=== PATIENT | female | born 1940 | race Caucasian/White ===

== ENCOUNTER 2016-08-09 14:00 | Emergency (ER) | payer MEDICARE ==
[~2016-08-09] VITALS: Ht 162.6 cm; Wt 66.4 kg
[2016-08-09 15:09] LABS: BLOOD UREA NITROGEN 13 mg/dL (7-18)
[2016-08-09] MEDS ORDERED: LEVO88TA4 PO (15:13)
[2016-08-09] MEDS ORDERED: POTA20TA14 PO (15:13)
[2016-08-09] MEDS ORDERED: FURO-93 PO (15:13)
[2016-08-09 17:16] LABS: IS PT STATUS REG ER OR PRE ER? YES
[2016-08-09 18:24] VITALS: BP 146/74
== END 2016-08-09 18:26 | disposition home or self-care (01) ==
LOC: ED 14:42
DX: M54.2 Cervicalgia (principal); M25.512 Pain in left shoulder; M79.622 Pain in left upper arm; E03.9 Hypothyroidism, unspecified
CPT/HCPCS: 36415; 72125; 80048; 82040; 84439; 84443; 84484; 85025; 93005

== ENCOUNTER 2018-02-18 06:43 | Inpatient (IN) | payer MEDICARE ==
[~2018-02-18] VITALS: Ht 162.6 cm; Wt 63.9 kg
[~2018-02-18 06:43] MED LIST: ASCO-90 PO; ASPI-496 PO; ASPI-691 PO; CALC-126 PO; CHOL200024 PO; CYAN500T2 PO; ESTR0.5T PO; FLUT9.9S NS; FURO-93 PO; GLUC-121 PO; LEVO88TA4 PO; MULT-717 PO; POTA20TA14 PO; excedrin pm PO
[2018-02-18] MEDS ORDERED: FENTANYL PF 100 MCG/2ML ONE (07:46)
[2018-02-18] MEDS ORDERED: PROPOFOL 50 ML ONE (07:52)
[2018-02-18] MEDS: LACTATED RINGERS 1,000 ML IV SCH ×2 (07:58→12:38)
[2018-02-18] MEDS ORDERED: ACETAMINOPHEN 500 MG TABLET PO ONE (08:00)
[2018-02-18] MEDS ORDERED: LIDOCAINE-MPF 1%, 2ML INFIL ONE (08:00)
[2018-02-18] MEDS ORDERED: ONDANSETRON ODT 8 MG PO ONE (08:00)
[2018-02-18] MEDS ORDERED: GABAPENTIN 300 MG CAPSULE PO ONE (08:00)
[2018-02-18] MEDS ORDERED: FAMOTIDINE 20 MG TABLET PO ONE (08:00)
[2018-02-18] MEDS ORDERED: ROPIvacaine/PF 0.2%, 20 ML ONE (09:17)
[2018-02-18] MEDS ORDERED: TRANEXAMIC ACID 100 MG/ML, 10ML ONE (09:17)
[2018-02-18] MEDS ORDERED: KETOROLAC 60 MG/2 ML ONE (09:17)
[2018-02-18] MEDS ORDERED: EPINEPHRINE 1 MG/ML, 1ML ONE (09:18)
[2018-02-18] MEDS ORDERED: SODIUM CHLORIDE 0.9% 100 ML ONE (09:18)
[2018-02-18] MEDS ORDERED: MIDAZOLAM 1 MG/ML, 2ML ONE (09:39)
[2018-02-18] MEDS ORDERED: MEPERIDINE/PF 25MG/0.5ML IVPush PRN (10:30)
[2018-02-18] MEDS ORDERED: ONDANSETRON 2MG/ML, 2ML IV PRN ×2 (10:30→11:30)
[2018-02-18] MEDS ORDERED: FENTANYL PF 100 MCG/2ML IV PRN (10:30)
[2018-02-18] MEDS ORDERED: PROMETHAZINE 25 MG/ML, 1ML IV PRN (10:30)
[2018-02-18] MEDS ORDERED: OXYcodone 5 MG/5 ML ORAL.SOL UDC PO PRN (10:30)
[2018-02-18] MEDS ORDERED: ONDANSETRON ODT 8 MG PO PRN (10:30)
[2018-02-18] MEDS ORDERED: LORazepam 2 MG/ML, 1ML IVPush PRN (10:30)
[2018-02-18] MEDS ORDERED: HYDROmorphone 2 MG/ML, 1ML IVPush PRN (10:30)
[2018-02-18] MEDS ORDERED: PROPOFOL 10 MG/ML, 20ML ONE (10:32)
[2018-02-18] MEDS ORDERED: DEXAMETHASONE 4 MG/ML, 1ML ONE (10:32)
[2018-02-18] MEDS ORDERED: BUPIVACAINE/PF 0.25% ONE (10:32)
[2018-02-18] MEDS ORDERED: ONDANSETRON 2MG/ML, 2ML ONE (10:32)
[2018-02-18] MEDS ORDERED: CEFAZOLIN 1,000 MG ONE (10:32)
[2018-02-18] MEDS ORDERED: PROMETHAZINE 25 MG/ML, 1ML IM PRN (11:30)
[2018-02-18] MEDS ORDERED: HYDROmorphone 1 MG/ML, 1ML IV PRN (11:30)
[2018-02-18] MEDS ORDERED: DIPHENHYDRAMINE 50 MG CAPSULE PO PRN (11:30)
[2018-02-18] MEDS ORDERED: ONDANSETRON 4 MG TABLET PO PRN (11:30)
[2018-02-18] MEDS ORDERED: TRANEXAMIC ACID 1,000 MG in SODIUM CHLORIDE 0.9% 100 ML IVPB ONE (11:30)
[2018-02-18] MEDS ORDERED: ACETAMINOPHEN 650 MG/20.3 ML UDC PO PRN (11:30)
[2018-02-18] MEDS ORDERED: PROMETHAZINE 12.5 MG SUPP PR PRN (11:30)
[2018-02-18] MEDS ORDERED: BISACODYL 10 MG SUPP PR PRN (11:30)
[2018-02-18] MEDS ORDERED: ZOLPIDEM 5MG TABLET PO PRN (11:30)
[2018-02-18] MEDS ORDERED: SENNA/DOCUSATE TABLET PO PRN (11:30)
[2018-02-18] MEDS ORDERED: MAGNESIUM HYDROXIDE 8%, 30ML UDC PO PRN (11:30)
[2018-02-18] MEDS ORDERED: DIAZEPAM 5 MG TABLET PO PRN (11:30)
[2018-02-18] MEDS ORDERED: TEMPLATE NON-FORMULARY MED. (Potassium Chloride** 20 MEQ) PO PRN (11:30)
[2018-02-18] MEDS ORDERED: ALUMINUM/MAG/SIMETHICONE 30 ML UDC PO PRN (11:30)
[2018-02-18 13:57] VITALS: BP 138/63
[2018-02-18] MEDS: D5%-0.45% NACL 1,000 ML IV SCH ×2 (14:41→23:30)
[2018-02-18] MEDS: HYDROcodone/APAP 10/325 MG TABLET PO PRN ×2 (15:11→22:12)
[2018-02-18] MEDS: ASPIRIN 81 MG TABLET EC PO SCH (17:10)
[2018-02-18] MEDS: CEFAZOLIN PMX 1GM/50ML 50 ML IVPB SCH (17:11)
[2018-02-18 19:57] VITALS: BP 152/79
[2018-02-18] MEDS ORDERED: FLUTICASONE NASAL SPRAY 16GM NAS SCH (21:00)
[2018-02-18] MEDS: DOCUSATE 100 MG CAPSULE PO SCH (22:12)
[2018-02-19 00:05] VITALS: BP 147/74
[2018-02-19] MEDS: CEFAZOLIN PMX 1GM/50ML 50 ML IVPB SCH (02:27)
[2018-02-19 04:00] VITALS: BP 154/73
[2018-02-19] MEDS: HYDROcodone/APAP 10/325 MG TABLET PO PRN ×2 (04:32→08:55)
[2018-02-19] MEDS: ASPIRIN 81 MG TABLET EC PO SCH (05:54)
[2018-02-19] MEDS ORDERED: DEXAMETHASONE 4 MG/ML, 1ML IVPush SCH (06:00)
[2018-02-19 07:29] VITALS: BP 150/70
[2018-02-19] MEDS ORDERED: HYDR-3307 PO (08:52)
[2018-02-19] MEDS: DOCUSATE 100 MG CAPSULE PO SCH (08:55)
[2018-02-19] MEDS ORDERED: MULTIVITAMINS/MINERALS TABLET PO SCH (09:00)
[2018-02-19] MEDS ORDERED: LEVOTHYROXINE 88 MCG TABLET PO SCH (09:00)
[2018-02-19] MEDS: D5%-0.45% NACL 1,000 ML IV SCH (09:13)
[2018-02-19] MEDS ORDERED: KETOROLAC 30 MG/1 ML IV SCH (11:30)
[2018-02-19 11:40] VITALS: BP 127/65
== END 2018-02-19 12:01 | disposition home or self-care (01) | DRG 470 ==
LOC: OUT 06:43 → ORIP 11:14 → 4NOR 12:16 → DCLOUNGE 02-19 11:45
PROVIDERS: ADMIT Orthopaedic Surgery; ATTEND Orthopaedic Surgery
PROC: 0SRD0J9 Replacement of Left Knee Joint with Synthetic Substitute, Cemented, Open Approach (ICD-10-PCS; principal; 2018-02-18 09:45)
DX: M17.12 Unilateral primary osteoarthritis, left knee (principal); M21.162 Varus deformity, not elsewhere classified, left knee
CPT/HCPCS: 36415; 85014; 85018; C1713; G0378; J0171; J0690; J1100; J1885; J2250; J2405; J2704; J2795; J3010; J3490; Q0162; C1776; J7120

== ENCOUNTER → 2019-02-25 | Outpatient (CLI) | payer MEDICARE ==
[~2019-02-25] MED LIST changes: -CYAN500T2 PO; +CYAN500T54 PO; +HYDR-36 PO
== END | disposition home or self-care (01) ==
LOC: WOUND 14:25
PROVIDERS: ATTEND Nurse Practitioner Family
DX: R22.1 Localized swelling, mass and lump, neck (principal); E03.9 Hypothyroidism, unspecified; Z85.3 Personal history of malignant neoplasm of breast; Z96.652 Presence of left artificial knee joint
CPT/HCPCS: G0463